=== PATIENT | female | born 1945 | race Caucasian/White ===

== ENCOUNTER → 2016-08-14 | Outpatient (CLI) | payer MEDICARE ==
[~2016-08-14] MED LIST: CALCIUM + D 6001 TA1 PO; CALCIUM + D PO; CERTAGEN PO; LEVOXYL88 MCG PO; LORTAB 7.5-5001 TAB PO; PHENERGAN25 MG PO; PROMETHAZINE HC25 MG PO; SIMVASTATIN40 MG PO; SYNTHROID PO; VIT E PO; VITAMIN E400 UNI2 PO; ZANTAC PO; ZEGERID 40 MG C1 CAP PO; ZOCOR PO
--- NOTE | ~2016-08-14 | BD1 ---
[facility] A Service of [facility] & [facility] RADIOLOGY TEXT RESULTS PATIENT: LOUISA LEIGH LOCATION: [facility] : 47 UNIT #: [id number] AGE: [address]: Jonas Cash MD SEX: F ORDER DR: [id number] [facility] [address] [place], [place] [address] [id number] O MR#: [id number] Acc #: [id number] NAME: LOUISA LEIGH : 1945 SEX: F STUDY DATE/TIME: 08/14/2016 11:40 UNIT: [facility] ROOM: STUDY DESCRIPTION: BD Dexa Bone Dens 1+ Site Attending Physician: Jonas Cash M.D. Referring Physician: Jonas Cash M.D. Ordering Physician: Jonas Cash M.D. Primary Care Physician: Jonas Cash M.D. MEDICAL IMAGING REPORT This report is preliminary unless electronic signature is present EXAM DXA scan, 08/14/16. HISTORY Status post menopause with no hormone replacement therapy. Osteopenia. Family history of breast carcinoma in grandmother. Hyperthyroidism. Thyroid medication Synthroid use for 20 years. Family history of osteoporosis in sister. FINDINGS Bone mineral density in the lumbar spine from L1 through L4 is 0.812 g/cm2 which is 2.1 standard deviations below the mean when compared to young adult reference population which is characteristic of osteopenia. This is 0 standard deviations from the mean when compared to the age-matched population. Bone mineral density in the left femoral neck was 0.694 g/cm2 which is 1.4 standard deviations below the mean when compared to the young adult reference population which is characteristic of osteopenia. This is 0.4 standard deviations above the mean when compared to the age-matched population. IMPRESSION Bone mineral density in the lumbar spine and the left hip characteristic of osteopenia. Dictated by... Paco Uribe M.D. THIS IS AN ELECTRONICALLY VERIFIED REPORT Paco Uribe M.D. at 08/17/2016 8:25 AM LAMAR/kavin TD: 08/14/2016 21:33 [facility] A Service of [facility] & [facility] RADIOLOGY TEXT RESULTS PATIENT: LOUISA LEIGH LOCATION: [facility] #: [id number] : 47 UNIT #: [id number] AGE: [address]: Jonas Cash MD SEX: F ORDER DR: JOB #: [id number] MEDICAL IMAGING REPORT Page 1 of 1 COPY
== END | disposition home or self-care (01) ==
LOC: CWCC 11:15
DX: Z13.820 Encounter for screening for osteoporosis (principal); M85.89 Other specified disorders of bone density and structure, multiple sites
CPT/HCPCS: 77080

== ENCOUNTER → 2016-09-09 | Outpatient (CLI) | payer MEDICARE | END | disposition home or self-care (01) | LOC: CLAB 10:32 | DX: E89.0 Postprocedural hypothyroidism (principal) | CPT/HCPCS: 36415; 84443 ==